=== PATIENT | female | born 1965 | race Caucasian/White ===

== ENCOUNTER 2017-07-16 06:20 | Emergency (ER) | payer MEDICAID ==
[~2017-07-16] VITALS: Ht 167.6 cm; Wt 64.1 kg
[2017-07-16 06:21] VITALS: BP 138/94
[2017-07-16] MEDS ORDERED: CELE200C PO (06:27)
[2017-07-16] MEDS ORDERED: HYDR1TAB16 PO (06:27)
[2017-07-16] MEDS ORDERED: METH750T2 PO (06:28)
== END 2017-07-16 08:02 | disposition left against medical advice (07) ==
LOC: ED 07:50
DX: R21 Rash and other nonspecific skin eruption (principal); Z53.21 Procedure and treatment not carried out due to patient leaving prior to being seen by health care provider